=== PATIENT | male | born 1950 ===

== ENCOUNTER 2018-06-20 14:08 | Outpatient (CLI) | payer OTHER | END 2018-06-20 17:39 | disposition home or self-care (01) | LOC: EKG 14:08 → EDBD 14:08 → EKG 17:39 | DX: Z01.810 Encounter for preprocedural cardiovascular examination (principal) ==

== ENCOUNTER 2018-06-23 12:00 | Inpatient (IN) | payer OTHER ==
[~2018-06-23] VITALS: Ht 172.7 cm; Wt 86.2 kg
[2018-07-02] MEDS ORDERED: PERCOCET 5-3251 EACH PO (12:46)
== END 2018-07-02 13:19 | disposition home or self-care (01) | DRG 331 ==
LOC: SURH 06-29 05:30 → O/R 06-29 05:30 → SURH 06-29 12:00 → EDBD 06-29 12:00 → SURH 06-29 14:56
PROVIDERS: ADMIT Surgery
PROC: 07TC4ZZ Resection of Pelvis Lymphatic, Percutaneous Endoscopic Approach (ICD-10-PCS; 2018-06-29)
PROC: 0DTF4ZZ Resection of Right Large Intestine, Percutaneous Endoscopic Approach (ICD-10-PCS; principal; 2018-06-29 16:45)
DX: D12.2 Benign neoplasm of ascending colon (principal); K63.5 Polyp of colon

== ENCOUNTER 2018-06-27 05:15 | Day surgery (SDC) | payer OTHER | END 2018-06-27 09:40 | disposition home or self-care (01) | LOC: EDBD → AMB-ENDOS 05:15 | DX: K64.8 Other hemorrhoids (principal) ==

== ENCOUNTER 2021-01-27 07:40 | Day surgery (SDC) | payer OTHER ==
[~2021-01-27 07:40] MED LIST: PERCOCET 5-3251 EACH PO
== END 2021-01-27 13:20 | disposition home or self-care (01) ==
LOC: AMB-ENDOS 07:40
PROVIDERS: ATTEND Surgery
DX: K62.89 Other specified diseases of anus and rectum (principal); K64.8 Other hemorrhoids; Z20.822 Contact with and (suspected) exposure to COVID-19